=== PATIENT | male | born 2005 | race Caucasian/White ===

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

== ENCOUNTER 2023-02-14 12:30 | Outpatient (RCR) | payer OTHER, SELFPAY ==
--- NOTE | 2023-01-25 12:37 | HP.PTEVAL_ITS ---
Patient's Visit Information Visit Information Visit Information: JOSIAH SANTILLAN is a 17 year old M referred to Physical Therapy by Dr. Shayan Deal MD with a diagnosis of Pes planus. Date of Evaluation: 01/25/23 Physical Therapist: Josse Yousif, DPT, OCS, CSCS Visit Plan Plan: call to cut orhtoics to shoe when they arrive from [facility] Subjective Subjective: No pain but has flat feet. Ankles ache if works 8 hour shift or walks too far and has been that way for long time. Played golf in HS and it ached after that. Already has orthotics but they are old and torn up. [employer]. Sleeps OK. Objective Objective: B pes planus is obvious in WB in both feet. Ankle AROM is full except R DF which is 0 vs 5 on L. strength ankle 4+/5 Walks normal with obvious flat feet and some hindfoot valgus. Not overly tender in ankle area B. Goals Goal 1:: orthotics dispensed and I in use. Goal Time Frame: 2-4 Weeks Rehabilitation Potential Physical Therapy Diagnosis: B pes planus possibly leading to some ankle pain wi th volume WB. Rehabilitation Potential: Good Anticipated Interventions Patient/Client Instruction: Educate patient on: Plan of Care For the Purpose of:: To decrease pain Orthotics: Shoe insert For the Purpose of:: To decrease pain Text: Thank you for the opportunity to evaluate your patient. For Medicare and Medicare HMO plans, please review the plan of care and approve it. It will need to be FAXED BACK to us at [phone] for Medicare purposes. For Medicare only, by signing this I certify the plan of care. Please let me know if there are questions or concerns regarding this plan of care. Physician Signature: Date:
--- NOTE | 2023-02-14 12:30 | HP.PTDCSUM ---
Discharge Summary D/C summary: It has been my pleasure to treat JOSIAH SANTILLAN referred by Dr. Shayan Deal MD, with the diagnosis of Pes planus for a total of 2 visit(s). Discharge Date: 02/14/23 Please see the following information for a summary of their discharge status. Subjective Subjective: No pain and no problems. Using old orthoitcs at this time. Objective Objective/Function: Good fit in shoe and feel while patient walking Goals Goal 1:: orthotics dispensed and I in use. Goal Progress: Goal Met Plan Plan: d/c , pt to call if bothersome and needs revision. D/C Information Discharge Comments: Orthotics dispensed adn good fit. Pt to call if problems with them. d/c sentence: If there are questions or concerns regarding this patient's physical therapy, please feel free to call me at [phone]. Thank you for the referral of this patient. Sincerely, Josse Yousif, DPT, OCS, CSCS
== END 2023-02-14 13:13 | disposition home or self-care (01) ==
LOC: PT 12:30
PROVIDERS: PCP Family Medicine; Referring Provider Family Medicine; Visit Provider Family Medicine
DX: M21.40 Flat foot [pes planus] (acquired), unspecified foot (principal)
CPT/HCPCS: 97161

== ENCOUNTER 2025-03-01 12:16 | Outpatient (RCR) | payer OTHER, SELFPAY ==
--- NOTE | 2025-03-01 12:52 | HP.PTEVAL ---
Patient's Visit Information Visit Information Visit Information: JOSIAH SANTILLAN is a 19 year old M referred to Physical Therapy by Dr. Saturnino Deal MD with a diagnosis of pes planus. Date of Evaluation: 03/01/25 Physical Therapist: Josse Yousif, DPT, OCS, CSCS Visit Plan Duration: callw ehn orhotics return Plan: Orthotics molded and sent off via DPM. Call patient when they arrive adn we can give them to his mother. I educated him on weaning, use and how to cut them and since he is going off to school next week and has experience with them, she will pick them up and he will cut them himself. DPM everyday semirigid MC puff cover jay and bottom cover black, normal arch. Subjective Subjective: Wants new orthotics, old one's helped with his flat feet and have had them orthotics forever adn they are wearing down. No symptoms at this point and wants to keep it that way. Sometimes gets ankle pain with long distance walking such as at [place]. Objective Objective: B flat feet and pes planus moderate to severe. Good ankle AROM, good met head mobility and big toes moves well. B No tenderness in PF or achilles. 4 degree B Df, 55 PF, 22 inv adn 8 eversion. 5/5 sstrength ankles.B Goals Goal 1:: fit for adn I in use of new orthotics Goal Time Frame: 2-4 Weeks Rehabilitation Potential Physical Therapy Diagnosis: pes planus requiring orthotics for management Rehabilitation Potential: Good Anticipated Interventions Patient/Client Instruction: Educate patient on: Condition For the Purpose of:: To improve health of tissue Orthotics: Shoe insert For the Purpose of:: To improve health of tissue Text: Thank you for the opportunity to evaluate your patient. For Medicare and Medicare HMO plans, please review the plan of care and approve it. It will need to be FAXED BACK to us at [phone] for Medicare purposes. For Medicare only, by signing this I certify the plan of care. Please let me know if there are questions or concerns regarding this plan of care. Physician Signature: Date:
== END 2025-03-01 19:00 | disposition home or self-care (01) ==
LOC: PT 12:16
PROVIDERS: PCP Family Medicine; Referring Provider Family Medicine; Visit Provider Family Medicine
DX: M21.40 Flat foot [pes planus] (acquired), unspecified foot (principal)
CPT/HCPCS: 97161; 97760